=== PATIENT | female | born 2000 | race Caucasian/White ===

== ENCOUNTER 2025-02-13 16:47 | Inpatient (IN) | payer MEDICAID, OTHER ==
[~2025-02-13] VITALS: Ht 157.5 cm; Wt 89.5 kg
--- NOTE | 2025-02-13 17:12 | ED.PDOC ---
GI ASSESSMENT HPI Comments 24 y.o female presents to the ED via EMS for a chief complaint of abdominal pain associated with nausea and vomiting that started 11 days ago but worsened today after eating a fatty meal at 11am. Patient reports being diagnosed with gallstones when pain first presented, states her first solid meal was today since which exacerbated her pain. Patient also mentions being 3 weeks . Patient denies any vaginal bleeding, bloody stool dysuria, he maturia, diarrhea, fever, or chills. Patient reports pain is constant and sharp. EMS presents on scene, patient was hypotensive in the 80's systolic, was given 200 cc IV fluids brining pressure back up to 93/63. HPI OREN RITCHIE 24 F. EPIG PAIN N/V/ SIMILAR TO GALLSTONES IN PAST. AFTER EATING FATTY MEAL TODAY. SHE'S BEEN ON CLEAR DIET FOR FEW DAYS. HYPOTENSION. Patient denies any allergies Vitals Temperature: 98.1 F Heart Rate: 88 Blood pressure: 93/63 SPO2: 98% RA RR: 20 Past Medical History: Gallstones Past Surgical History: Denies HPI: Poor Historian. REVIEW OF SYSTEMS: CONSTITUTIONAL: Denies acute: fever, diaphoresis, chills, HEAD: Denies acute: headache, photophobia Eyes: Denies acute: Double vision, vision loss, eye pain, eye discharge. EARS: Denies acute: tinnitus, hearing loss, ear discharge, ear pain, THROAT: Denies acute: sore throat, swelling, difficulty swallowing , pain with swallowing, change in voice. NECK: Denies acute: neck pain, neck swelling, stiff neck. HEART: Denies acute : chest pain, palpitations, LUNGS: Denies acute: SOB, wheezing, cough, hemoptysis ABDOMEN: Denies acute: diarrhea, melena , hematemesis, hematochezia SKIN: Denies acute: rash, redness, lesions, itchiness. EXTREMITIES: Denies acute: calf pain, numbness, tingling, weakness, denies pain in extremity. Denies acute: Low back pain. Neuro: Denies acute: focal neurological deficit, motor or sensory focal neurological deficit, tremors, seizure like activity, confusion, dizziness, change in mental status, loss of bowel or bladder function, cauda equina like symptoms. : Denies acute: dysuria, hematuria, flank pain, increase in urinary frequency. PSYCH: Denies acute: hallucination, suicidal ideation, homicidal ideation. FEMALE: Denies acute: abnormal vaginal bleeding, foul odor, unusual discharge. PHYSICAL EXAM: General: ----[id number]----acute distress, awake and alert. Head: normocephalic, atraumatic. Neck: supple, trachea is midline, no swelling. Throat: Normal phonation. Eyes:, no erythema, no purulent discharge, no proptosis, no icterus. Heart: regular rate, regular rhythm, no significant murmur appreciated. Lungs: no apparent respiratory distress, Able to speak in full sentences. No wheezing, no rhonchi, no crackles. No stridors Clear to auscultation bilaterally. Abdomen: Mid abdomen/epigastric tender to palpation, non distended, soft, no guarding, no rebound, + bowel sounds. Obese Neuro: Awake, Alert, oriented to name, self, situation, follows commands GCS=15. Speech is normal. Skin: no petechia, no purpura, no cyanosis, non-pale, not jaundice. Lower extremities: --no - Pitting edema no deformity, no focal swelling, no calf TTP. Makes eye contact. moves all four extremities. Face: no apparent facial droop. Evaluation of the surgical site. Incision looks clean dry intact. No findings to suggest infection. No erythema, no swelling, no drainage, no dehiscence. No tenderness to palpation. ED COURSE: Chief Complaint: Low Blood Pressure Time Seen by MD: 16:52 Primary Care Provider: UNKNOWN Reviewed Notes: Medications, Allergies Allergies: Coded Allergies: NO KNOWN ALLERGIES (Unverified , 08/03/11) Information Source: Patient Mode of Arrival: EMS Past Medical History PAST MEDICAL HISTORY: Gallstones Surgical History: Denies all surgeries AUTOMATIC [employer]ILOT [employer]CH[employer]IC History: No Pertinent AUTOMAT[employer] PILOT MECH[employer]IC History Family History Family History: Reviewed,noncontributory to illness Social History Smoker: Non-Smoker Alcohol: Denies ETOH Use Drugs: Denies Drug Use Lives In: Home Was a procedure done? Was a procedure done?: No GI differential Dx Differential Diagnosis: Cholangitis, Cholecystitis, Gastroenteritis, Inflammatory BD, Electrolyte Imbalance, Food Poisoning, Viral, Other (DDX include Diverticulitis, colitis, gastroenteritis, acute abdomen, SBO, enteritis, constipation, volvulus, appendicitis, Gallbladder disease, choledocolithiasis, ascending cholangitis, pancreatitis, intraAbdominal mass/neoplasm, hepatitis, UTI, pylonephritis, kidney stone, aneurysm, dissection, Inflammatory bowel disease, gastroparesis, ischemic bowel, ovarian torsion, ovarian cyst/mass, tubo-ovarian abscess, , ectopic , PID, STD.) X-Ray, Labs, Meds, VS Vital Signs Date Time Temp Pulse Resp B/P (MAP) Pulse Ox O2 Delivery O2 Flow Rate FiO2 02/13/25 20:35 107/55 02/13/25 20:00 98.4 86 16 107/55 (72) 97 98.4 02/13/25 20:00 86 16 97 Room Air* 0 21 02/13/25 20:00 88 02/13/25 17:20 Room Air* 0 21 02/13/25 17:20 98.3 82 17 107/63 (78) 99 98.3 02/13/25 16:56 98.1 88 20 93/63 (73) 98 98.1 Lab Test 02/13/25 20:13 02/13/25 17:35 02/13/25 17:05 Range/Units Urine Opiates Screen Neg NEGATIVE Urine Fentanyl Screen Neg NEGATIVE Urine Barbiturates Screen Neg NEGATIVE Urine Phencyclidine Screen Neg NEGATIVE Urine Amphetamines Screen Neg NEGATIVE Urine Benzodiazepines Screen Neg NEGATIVE Urine Cocaine Screen Neg NEGATIVE Urine Cannabinoids Screen Neg NEGATIVE Urine Color Light-yellow Yellow Urine Clarity Turbid H Clear Urine pH 8.0 5.0-9.0 Urine Specific [place] 1.007 1.001-1.035 Urine Protein Negative Negative Urine Ketones Negative Negative Urine Blood 2+ H Negative /uL Urine Nitrite Negative Negative Urine Bilirubin Negative Negative Urine Urobilinogen Normal Negative mg/dL Urine Leukocyte Esterase 3+ Negative /uL Urine RBC 3 0 - 4 /hpf Urine Microscopic WBC 65 H 0-5 /HPF Urine Squamous Epithelial Cells Few <5 /hpf Urine Bacteria Few H None Seen /hpf Urine Glucose Normal Normal mg/dL White Blood Count 4.2 L 4.4-10.8 10^3/uL Red Blood Count 4.17 4.0-5.20 10^6/uL Hemoglobin 11.9 L 12.2-16.2 g/dL Hematocrit 35.5 L 36.0-46.0 % Mean Corpuscular Volume 85.0 80.0-100.0 fL Mean Corpuscular Hemoglobin 28.4 28.0-32.0 pg Mean Corpuscular Hemoglobin Concent 33.5 32.0-36.0 g/dL Red Cell Distribution Width 15.2 H 11.8-14.3 % Platelet Count 328 140-450 10^3/uL Mean Platelet Volume 7.3 6.9-10.8 fL Neutrophils (%) (Auto) 56.1 37.0-80.0 % Lymphocytes (%) (Auto) 25.9 10.0-50.0 % Monocytes (%) (Auto) 13.5 H 0.0-12.0 % Eosinophils (%) (Auto) 3.6 0.0-7.0 % Basophils (%) (Auto) 0.9 0.0-2.0 % Neutrophils # (Auto) 2.3 1.6-8.6 10 ^3/uL Lymphocytes # (Auto) 1.1 0.4-5.4 10 ^3/uL Monocytes # (Auto) 0.6 0-1.3 10 ^3/uL Eosinophils # (Auto) 0.2 0-0.8 10 ^3/uL Basophils # (Auto) 0 0-0.2 10 ^3/uL Nucleated Red Blood Cells 0.2 % Erythrocyte Sedimentation Rate 82 H 0-20 mm/hr Sodium Level 144 136-145 mmol/L Potassium Level 3.9 3.5-5.1 mmol/L Chloride Level 111 H 98-107 mmol/L Carbon Dioxide Level 24 20-31 mmol/L Anion Gap 9 5-15 Blood Urea Nitrogen 8 L 9-23 mg/dL Creatinine 0.63 0.550-1.02 mg/dL Glomerular Filtration Rate Calc 128 >90 mL/min BUN/Creatinine Ratio 12.7 10.0-20.0 Serum Glucose 79 74-106 mg/dL Lactic Acid Level 1.0 0.4-2.0 mmol/L Calcium Level 8.9 8.7-10.4 mg/dL Total Bilirubin 0.6 0.2-1.0 mg/dL Aspartate Amino Transferase (AST) 536 H 13-40 U/L Alanine Aminotransferase (ALT) 306 H 7-40 U/L Alkaline Phosphatase 321 H 46-116 U/L C-Reactive Protein High Sensitivity 0.77 <1.0 mg/dL B-Type Natriuretic Peptide 5.48 0-100 pg/mL Total Protein 6.1 5.7-8.2 g/dL Albumin 3.5 3.2-4.8 g/dL Lipase 55 H 12-53 U/L Current Medications Medications (Trade) Dose Ordered Sig/Milagros Route Start Time Stop Time Status Last Admin Sodium Chloride 1,000 ml @ 1,000 mls/hr Q1H ONCE IV 02/13/25 17:15 02/13/25 18:14 DC 02/13/25 17:58 Ondansetron HCl (Zofran) 8 mg ONCE ONCE IV 02/13/25 17:15 02/13/25 17:17 DC 02/13/25 17:58 Ceftriaxone Sodium 50 ml @ 100 mls/hr ONCE ONCE IV 02/13/25 19:00 02/13/25 19:29 DC 02/13/25 19:11 Fentanyl Citrate 100 mcg ONCE ONCE IV 02/13/25 20:15 02/13/25 20:16 DC 02/13/25 20:35 Sodium Chloride (Saline Lock Ns) 10 ml Q8HR IV 02/13/25 22:00 02/13/25 22:29 [place] [id number] Ph: [phone] DIAGNOSTIC IMAGING Diagnostic Imaging Report : [id number] Signed PATIENT: CHAD RITCHIECCT: [id number] UNIT: [id number] : 2000 LOC: ER ROOM / BED: / AGE / SEX: 24 / F ADM STATUS: REG ER SERVICE [id number] ORDERING PHYSICIAN: GLENDY LEDEZMA DO PROCEDURE(s): ABDL - ABDOMEN LIMITED REASON: epig pain n/v ORDER NUMBER(s): [id number], ACCESSION NUMBER(s): [id number] INDICATION: epig pain n/v TECHNIQUE: Multiple real-time sonographic images were obtained of the right upper quadrant. COMPARISON: None FINDINGS: The liver demonstrates increased echotexture without focal mass lesi ons. The liver measures 17.4 cm. There is no intrahepatic or extrahepatic ductal dilatation. The common duct measures 0.4 cm. The gallbladder is without evidence of stone or sludge. The gallbladder wall measures 0.2 cm and is within normal limits. The right kidney measures 10.6 cm. The right kidney is normal in contour, size, and shape. The echogenicity is normal. There is no hydronephrosis. The pancreas is not well visualized due to overlying bowel gas. IMPRESSION: Hepatic steatosis and hepatomegaly. ATED BY: ERIC RICK MD DICTATED DATE/TIME: 02/13/251747 SIGNED BY: ERIC RICK MD SIGNED DATE/TIME: 02/13/251747 CC: [place] [id number] Ph: [phone] DIAGNOSTIC IMAGING Diagnostic Imaging Report : [id number] Signed PATIENT: CHAD RITCHIECCT: [id number] UNIT: [id number] : 2000 LOC: ER ROOM / BED: / AGE / SEX: 24 / F ADM STATUS: REG ER SERVICE [id number] ORDERING PHYSICIAN: GLEDNY LEDEZMA DO PROCEDURE(s): ABPL - CT AB PEL WO CON-NO ORAL OR IV REASON: abd pain , n/v ORDER NUMBER(s): [id number], ACCESSION NUMBER(s): [id number] Exam: CT CT AB PEL WO CON-NO ORAL OR IV History: abd pain , n/v Comparison Study: None TECHNIQUE: Multidetector CT of the abdomen and pelvis was performed from lung bases to pubic symphysis. Imaging was performed without IV contrast. Axial, c oronal, and sagittal multiplanar reformats were obtained from the axial data set by the technologist. RADIATION DOSE: DLP 22.68 mGy.cm; CTDI vol 1157.92 mGy. Findings: Lungs: The lung bases are clear. Heart: No cardiomegaly or pericardial effusion. Liver: Unremarkable. Gallbladder: Unremarkable. Spleen: Unremarkable Pancreas: Unremarkable Adrenals: Unremarkable Kidneys: Unremarkable GI tract: Unremarkable. Normal appendix. : Unremarkable. Vasculature: Unremarkable Lymphadenopathy: Mildly prominent mesenteric lymph nodes in the right lower quadrant. Peritoneum: No ascites Musculoskeletal: Unremarkable Soft tissues: Unremarkable Impression: 1. No acute abdominopelvic abnormalities. 2. Mildly prominent right lower quadrant mesenteric nodes. Correlate for mesenteric adenitis. ATED BY: MARY CARMEN ARELLANO DO DICTATED DATE/TIME: 02/13/252039 SIGNED BY: MARY CARMEN ARELLANO DO SIGNED DATE/TIME: 02/13/252039 CC: Time of 1ST Reevaluation: 18:00 Reevaluation 1ST: Unchanged Time of 2ND Reevaluation: 00:40 Reevaluation 2ND: Improved Patient Education/Counseling: Diagnosis, Treatment Family Education/Counseling: No Family Present Comments Patient presented with the above HPI.-abdominal pain----workup was initiated. patient was found with the above mentioned diagnosis. the following medications were ordered: please refer to order lists of meds and tests obtained by myself Dr. Ledezma. Patient ED course and VS have been stabilized. Patient has been reassessed in the ED and remained in a stable condition. Pertinent incidental findings were discussed with the patient and/or family. Patient/family voices understanding and is agreeable with plan. Patient has been observed in the ED adequate length of time to insure improvement/stability. Escalation of care considered: Consideration of escalation to observation or admission Patient was ADMITTED to the medicine team for further evaluation and treatment of their presentation. All the reports of any imaging studies that were ordered by myself were reviewed by myself. Departure 1 Departure Time of Disposition: 18:49 Impression: Primary Impression: Elevated LFTs Additional Impressions: Abdominal pain Mesenteric adenitis UTI (urinary tract infection) Disposition: ADMITTED INPATIENT Admit to: [facility] Condition: Guarded Discharged With: Self Critical Care Note Critical Care Time?: No I personally scribed for GLENDY LEDEZMA DO ([email or web address]) on 02/13/25 at 17:12. Electronically submitted by Lauren Brumfield ([facility]). I personally scribed for GLENDY LEDEZMA DO ([email or web address]) on 02/13/25 at 18:17. Electronically submitted by Lauren Brumfield ([email or web address]). I personally scribed for GLENDY LEDEZMA DO ([email or web address]) on 02/13/25 at 21:25. Electronically submitted by Saturnino Galo ([email or web address]). GLENDY LEDEZMA DO Feb 13, 2025 17:12
[2025-02-13 17:19] LABS: Basophils # (auto) 0 10 ^3/uL (0-0.2); Basophils % (auto) 0.9 % (0.0-2.0); Eosinophils # (auto) 0.2 10 ^3/uL (0-0.8); Eosinophils % (auto) 3.6 % (0.0-7.0); Hematocrit 35.5 % (36.0-46.0); Hemoglobin 11.9 g/dL (12.2-16.2); Lymphocytes # (auto) 1.1 10 ^3/uL (0.4-5.4); Lymphocytes % (auto) 25.9 % (10.0-50.0); Mean Corpuscular Hemoglobin 28.4 pg (28.0-32.0); Mean Corpuscular Hgb Conc. 33.5 g/dL (32.0-36.0); Monocytes # (auto) 0.6 10 ^3/uL (0-1.3); Monocytes % (auto) 13.5 % (0.0-12.0); Neutrophils # (auto) 2.3 10 ^3/uL (1.6-8.6); Neutrophils % (auto) 56.1 % (37.0-80.0); Nucleated Red Blood Cells % 0.2 %; Platelet Count (auto) 328 10^3/uL (140-450); Red Blood Cells 4.17 10^6/uL (4.0-5.20); Red Cell Distribution Width 15.2 % (11.8-14.3); White Blood Cell 4.2 10^3/uL (4.4-10.8)
[2025-02-13 17:31] LABS: Albumin 3.5 g/dL (3.2-4.8); Anion Gap 9 (5-15); BUN/Creatinine Ratio 12.7 (10.0-20.0); Bilirubin, Total 0.6 mg/dL (0.2-1.0); CRP High Sensitivity 0.77 mg/dL (<1.0); Calcium 8.9 mg/dL (8.7-10.4); Carbon Dioxide 24 mmol/L (20-31); Glucose 79 mg/dL (74-106); Potassium 3.9 mmol/L (3.5-5.1); Sodium 144 mmol/L (136-145); Total Protein 6.1 g/dL (5.7-8.2)
[2025-02-13 17:34] LABS: Alanine Aminotransferase 306 U/L (7-40); Alkaline Phosphatase 321 U/L (46-116); Aspartate Aminotransferase 536 U/L (13-40); Blood Urea Nitrogen 8 mg/dL (9-23); Chloride 111 mmol/L (98-107)
--- NOTE | 2025-02-13 17:52 | DVH ---
INDICATION: epig pain n/v TECHNIQUE: Multiple real-time sonographic images were obtained of the right upper quadrant. COMPARISON: None FINDINGS: The liver demonstrates increased echotexture without focal mass lesions. The liver measure s 17.4 cm. There is no intrahepatic or extrahepatic ductal dilatation. The common duct measures 0.4 cm. The gallbladder is without evidence of stone or sludge. The gallbladder wall measures 0.2 cm and is w ithin normal limits. The right kidney measures 10.6 cm. The right kidney is normal in contour, size, and shape. The echoge nicity is normal. There is no hydronephrosis. The pancreas is not well visualized due to overlying bowel gas. IMPRESSION: Hepatic steatosis and hepatomegaly.
[2025-02-13 17:54] LABS: Erythrocyte Sedimentation Rate 82 mm/hr (0-20)
[2025-02-13] MEDS: SODIUM CHLORIDE 0.9% 1,000 ML IV ONE (17:58)
[2025-02-13] MEDS: ONDANSETRON HCL 4 MG/2 ML VIAL IV ONE (17:58)
[2025-02-13 18:21] LABS: Urine Bacteria FEW /hpf (None Seen); Urine Blood 2+ /uL (Negative); Urine Clarity Turbid (Clear); Urine Color Light-Yellow (Yellow); Urine Protein, UAD Negative (Negative); Urine Specific Gravity 1.007 (1.001-1.035); Urine Squamous Epithelial Cell FEW /hpf (<5); Urine Urobilinogen Normal (Negative); Urine WBC 65 /HPF (0-5)
[2025-02-13] MEDS: cefTRIAXone 1GM/50ML D5W 50 ML IV ONE (19:11)
[2025-02-13 20:00] VITALS: PULSE 86; RESP 16; O2SAT 97
[2025-02-13] MEDS: fentaNYL CITRATE 100 MCG/2 ML VL IV ONE (20:35)
--- NOTE | 2025-02-13 20:43 | DVH ---
Exam: CT CT AB PEL WO CON-NO ORAL OR IV History: abd pain , n/v Comparison Study: None TECHNIQUE: Multidetector CT of the abdomen and pelvis was performed from lung bases to pubic symphysi s. Imaging was performed without IV contrast. Axial, coronal, and sagittal multiplanar reformats were obtained from the axial data set by the technologist. RADIATION DOSE: DLP 22.68 mGy.cm; CTDI vol 1157.92 mGy. Findings: Lungs: The lung bases are clear. Heart: No cardiomegaly or pericardial effusion. Liver: Unremarkable. Gallbladder: Unremarkable. Spleen: Unremarkable Pancreas: Unremarkable Adrenals: Unremarkable Kidneys: Unremarkable GI tract: Unremarkable. Normal appendix. : Unremarkable. Vasculature: Unremarkable Lymphadenopathy: Mildly prominent mesenteric lymph nodes in the right lower quadrant. Peritoneum: No ascites Musculoskeletal: Unremarkable Soft tissues: Unremarkable Impression: 1. No acute abdominopelvic abnormalities. 2. Mildly prominent right lower quadrant mesenteric nodes. Correlate for mesenteric adenitis.
[2025-02-13] MEDS ORDERED: HYDROcodone-ACET 5/325MG TAB PO PRN (21:15)
[2025-02-13] MEDS ORDERED: ONDANSETRON HCL 4 MG/2 ML VIAL IV PRN (21:15)
[2025-02-13] MEDS ORDERED: DOCUSATE SOD 100 MG CAP PO PRN (21:15)
[2025-02-13 21:56] LABS: Amphetamine Screen, Urine Neg (NEGATIVE); Barbiturate Scree,Urine Neg (NEGATIVE); Benzodiazephine Screen, Urine Neg (NEGATIVE); Cannabinoid Screen, Urine Neg (NEGATIVE); Cocaine Screen, Urine Neg (NEGATIVE); Opiate Scree,Urine Neg (NEGATIVE); Phencyclidine Screen, Urine Neg (NEGATIVE)
[2025-02-13] MEDS: SODIUM CHLOR 0.9% PF (SALINE LOCK) 10ML VIAL/SYR IV SCH (22:29)
[2025-02-13] MEDS ORDERED: MORPHINE SULFATE INJ 2 MG/ml SYRG IV PRN (23:00)
[2025-02-13] MEDS ORDERED: NITROGLYCERIN 0.4 MG SL TAB SL PRN (23:00)
--- NOTE | 2025-02-13 23:00 | DVHHP2 ---
History of Present Illness Reason for Visit: Acute abdominal pain History of Present Illness The patient is a a 24-year-old female with past medical history of gallstones who presented to [facility] ED with complaint of acute abdominal pain. Patient reports she has been experiencing diffuse abdominal pain with associated nausea and vomiting for the past 11 days. Patient was seen and evaluated in the ED, laboratory data shows WBC 4.2, hemoglobin 11.9, hematocrit 35.5, platelets 325, sodium 144, potassium 3.9, BUN 8, creatinine 0.63, glucose 79, lipase 55, AST 536, ALT 306, alkaline phos 321, BNP 5.48, blood pressure 107/59, heart rate 82, temperature 98.3 F, O2 saturation 99% room air. Single organ ultrasound revealing hepatic steatosis hepatomegaly. Abdomen/pelvis CT revealing mildly prominent right lower quadrant mesenteric nodes correlate for mesenteric adenitis. Urinalysis positive for urinary tract infection. Patient was started on IV antibiotic regimen Rocephin, please see medication orders section in the computer. On my assessment, patient denied chest pain, no headache, no dizziness, no shortness of breaths, no nausea or vomiting at this moment, no fever, no chills. Patient was admitted for further evaluation and medical management. Past Medical History Gallstones Past Surgical History Denies all surgeries Family History Reviewed, noncontributory to the management of this case. Past Social History The patient lives at home, denies smoking, alcohol or illicit drugs abuse. Review of Systems Constitutional: No: Fever, Chills, Sweats, Weakness, Malaise, Other Eyes: No: Pain, Vision change, Conjunctivae inflammation, Eyelid inflammation, Other, Redness ENT: No: Ear pain, Ear discharge, Nose pain, Nose discharge, Nose congestion, Mouth pain, Mouth swelling, Throat pain, Throat swelling, Other Respiratory: No: Cough, Dry, Shortness of breath, SOB with excertion, Wheezing, Hemoptysis, Pleuritic Pain, Sputum, Wheezing, Other Cardiovascular: No: Chest Pain, Palpitations, Orthopnea, Paroxysmal Noc. Dyspnea, Edema, Lt Headedness, Other Gastrointestinal: Nausea, Vomiting, Abdominal Pain; No: Diarrhea, Constipation, Melena, Hematochezia, Other Genitourinary: No Dysuria, No Frequency, No Incontinence, No Hematuria, No Retention, No Other Musculoskeletal: No: other, neck pain, shoulder pain, arm pain, back pain, hand pain, leg pain, foot pain Skin: No: Rash, Lesions, Jaundice, Bruising, Other Neurological: No: Weakness, Numbness, Incoordination, Change in speech, Confusion, Seizures, Other Allergies: Coded Allergies: NO KNOWN ALLERGIES (Unverified , 08/03/11) Medications Current Medications Medications Dose Ordered Sig/Milagros Route Start Time Stop Time Status Last Admin Dose Admin Ceftriaxone Sodium 50 ml @ 100 mls/hr DAILY@09 IV 02/14/25 09:00 Ibuprofen 600 mg Q6HP PRN PO 02/13/25 21:15 Sodium Chloride 10 ml Q8HR IV 02/13/25 22:00 02/13/25 22:29 10 ML Acetaminophen/ Hydrocodone Bitart 1 tab Q4HP PRN PO 02/13/25 21:15 Ondansetron HCl 4 mg Q4HP PRN IV 02/13/25 21:15 Docusate Sodium 100 mg BIDPRN PRN PO 02/13/25 21:15 Exam Vital Signs Vital Signs Date Time Temp Pulse Resp B/P (MAP) Pulse Ox O2 Delivery O2 Flow Rate FiO2 02/13/25 20:35 107/55 02/13/25 20:00 98.4 86 16 97 98.4 02/13/25 20:00 Room Air* 0 21 General Appearance: Alert, Oriented X3, Cooperative, No acute distress HEENT: Atraumatic, PERRLA, EOMI, Mucous membr. moist/pink Respiratory: Clear to auscultation, Normal air movement Cardiovascular: Regular rate, Normal S1, Normal S2, No murmurs Abdominal: Normal bowel sounds, Soft, No hepatospenomegaly, No masses, Other (Reports tenderness) Extremities: No clubbing, No cyanosis, No edema, Normal pulses, No tenderness/swelling Skin: No rashes, No breakdown, No significant lesion Neuro: Normal gait, Normal speech, Strength at 5/5 X4 ext, Normal tone, Sensation intact, Cranial nerves 3-12 NL, Reflexes 2+ Psych/Mental Status: Mental status NL, Mood NL Labs/Xrays Labs Test 02/13/25 20:13 02/13/25 17:35 02/13/25 17:05 Range/Units Urine Opiates Screen Neg NEGATIVE Urine Fentanyl Screen Neg NEGATIVE Urine Barbiturates Screen Neg NEGATIVE Urine Phencyclidine Screen Neg NEGATIVE Urine Amphetamines Screen Neg NEGATIVE Urine Benzodiazepines Screen Neg NEGATIVE Urine Cocaine Screen Neg NEGATIVE Urine Cannabinoids Screen Neg NEGATIVE Urine Color Light-yellow Yellow Urine Clarity Turbid H Clear Urine pH 8.0 5.0-9.0 Urine Specific [place] 1.007 1.001-1.035 Urine Protein Negative Negative Urine Ketones Negative Negative Urine Blood 2+ H Negative /uL Urine Nitrite Negative Negative Urine Bilirubin Negative Negative Urine Urobilinogen Normal Negative mg/dL Urine Leukocyte Esterase 3+ Negative /uL Urine RBC 3 0 - 4 /hpf Urine Microscopic WBC 65 H 0-5 /HPF Urine Squamous Epithelial Cells Few <5 /hpf Urine Bacteria Few H None Seen /hpf Urine Glucose Normal Normal mg/dL White Blood Count 4.2 L 4.4-10.8 10^3/uL Red Blood Count 4.17 4.0-5.20 10^6/uL Hemoglobin 11.9 L 12.2-16.2 g/dL Hematocrit 35.5 L 36.0-46.0 % Mean Corpuscular Volume 85.0 80.0-100.0 fL Mean Corpuscular Hemoglobin 28.4 28.0-32.0 pg Mean Corpuscular Hemoglobin Concent 33.5 32.0-36.0 g/dL Red Cell Distribution Width 15.2 H 11.8-14.3 % Platelet Count 328 140-450 10^3/uL Mean Platelet Volume 7.3 6.9-10.8 fL Neutrophils (%) (Auto) 56.1 37.0-80.0 % Lymphocytes (%) (Auto) 25.9 10.0-50.0 % Monocytes (%) (Auto) 13.5 H 0.0-12.0 % Eosinophils (%) (Auto) 3.6 0.0-7.0 % Basophils (%) (Auto) 0.9 0.0-2.0 % Neutrophils # (Auto) 2.3 1.6-8.6 10 ^3/uL Lymphocytes # (Auto) 1.1 0.4-5.4 10 ^3/uL Monocytes # (Auto) 0.6 0-1.3 10 ^3/uL Eosinophils # (Auto) 0.2 0-0.8 10 ^3/uL Basophils # (Auto) 0 0-0.2 10 ^3/uL Nucleated Red Blood Cells 0.2 % Erythrocyte Sedimentation Rate 82 H 0-20 mm/hr Sodium Level 144 136-145 mmol/L Potassium Level 3.9 3.5-5.1 mmol/L Chloride Level 111 H 98-107 mmol/L Carbon Dioxide Level 24 20-31 mmol/L Anion Gap 9 5-15 Blood Urea Nitrogen 8 L 9-23 mg/dL Creatinine 0.63 0.550-1.02 mg/dL Glomerular Filtration Rate Calc 128 >90 mL/min BUN/Creatinine Ratio 12.7 10.0-20.0 Serum Glucose 79 74-106 mg/dL Lactic Acid Level 1.0 0.4-2.0 mmol/L Calcium Level 8.9 8.7-10.4 mg/dL Total Bilirubin 0.6 0.2-1.0 mg/dL Aspartate Amino Transferase (AST) 536 H 13-40 U/L Alanine Aminotransferase (ALT) 306 H 7-40 U/L Alkaline Phosphatase 321 H 46-116 U/L C-Reactive Protein High Sensitivity 0.77 <1.0 mg/dL B-Type Natriuretic Peptide 5.48 0-100 pg/mL Total Protein 6.1 5.7-8.2 g/dL Albumin 3.5 3.2-4.8 g/dL Lipase 55 H 12-53 U/L PATIENT: MARILEE RITCHIET: [id number] UNIT: [id number] : 2000 LOC: ER ROOM / BED: / AGE / SEX: 24 / F ADM STATUS: REG ER SERVICE 1850 ORDERING PHYSICIAN: GLENDY LEDEZMA DO PROCEDURE(s): ABPL - CT AB PEL WO CON-NO ORAL OR IV REASON: abd pain , n/v ORDER NUMBER(s): [id number], ACCESSION NUMBER(s): [id number] Exam: CT CT AB PEL WO CON-NO ORAL OR IV History: abd pain , n/v Comparison Study: None TECHNIQUE: Multidetector CT of the abdomen and pelvis was performed from lung bases to pubic symphysis. Imaging was performed without IV contrast. Axial, coronal, and sagittal multiplanar reformats were obtained from the axial data set by the technologist. RADIATION DOSE: DLP 22.68 mGy.cm; CTDI vol 1157.92 mGy. Findings: Lungs: The lung bases are clear. Heart: No cardiomegaly or pericardial effusion. Liver: Unremarkable. Gallbladder: Unremarkable. Spleen: Unremarkable Pancreas: Unremarkable Adrenals: Unremarkable Kidneys: Unremarkable GI tract: Unremarkable. Normal appendix. : Unremarkable. Vasculature: Unremarkable Lymphadenopathy: Mildly prominent mesenteric lymph nodes in the right lower quadrant. Peritoneum: No ascites Musculoskeletal: Unremarkable Soft tissues: Unremarkable Impression: 1. No acute abdominopelvic abnormalities. 2. Mildly prominent right lower quadrant mesenteric nodes. Correlate for mesenteric adenitis. ORDERING PHYSICIAN: GLENDY LEDEZMA DO PROCEDURE(s): ABDL - ABDOMEN LIMITED REASON: epig pain n/v ORDER NUMBER(s): [id number], ACCESSION NUMBER(s): [id number] INDICATION: epig pain n/v TECHNIQUE: Multiple real-time sonographic images were obtained of the right upper quadrant. COMPARISON: None FINDINGS: The liver demonstrates increased echotexture without focal mass lesions. The liver measures 17.4 cm. There is no intrahepatic or extrahepatic ductal dilatation. The common duct measures 0.4 cm. The gallbladder is without evidence of stone or sludge. The gallbladder wall measures 0.2 cm and is within normal limits. The right kidney measures 10.6 cm. The right kidney is normal in contour, size, and shape. The echogenicity is normal. There is no hydronephrosis. The pancreas is not well visualized due to overlying bowel gas. IMPRESSION: Hepatic steatosis and hepatomegaly. Assessment/Plan Assessment/Plan Elevated liver enzymes Mesenteric adenitis Acute abdominal pain UTI (urinary tract infection) Plan 1. Admit to telemetry unit 2. Breathing treatment 3. Pain control management 4. IV antibiotic management 5. Management of fluids and electrolytes 6. Consultation for GI/hospitalist 7. Diagnostic test abdomen/pelvis CT 8. DVT prophylaxis-on SCDs 9. Repeat labs CBC, CMP in a.m. 10. Home medication reviewed and reconciled 11. Continue with current medical management 12. Treatment plan discussed with patient and RN. Patient verbalized understanding. Plan discussed with: Patient, Other (RN) My Orders Orders - TONIE GALAN DNP Procedure Category Date Status Time Urine Bacterial NANI 02/13/25 Logged Culture 21:12 Ceftriaxone 1gm/50ml PHA 02/14/25 In Process D5w (Rocephin) 09:00 * Gi D[facility] [employer] CONS 02/13/25 Transmitted 21:12 Ibuprofen Tablet PHA 02/13/25 In Process (Motrin Tablet) 21:15 Allergies ZHANG 02/13/25 In Process 21:12 Code Status CODE 02/13/25 Transmitted 21:12 Sodium Chloride Lock PHA 02/13/25 In Process (Saline Lock Ns) 22:00 Oxygen Per Hour RT 02/13/25 Transmitted 21:12 Hydrocodone-Acet PHA 02/13/25 In Process 5/325mg Tab (Yulan 21:15 Ondansetron Hcl PHA 02/13/25 In Process (Zofran) 21:15 Docusate Sodium PHA 02/13/25 In Process Capsule (Colace 21:15 Complete Blood Count LAB 02/14/25 Verified 04:00 Comprehensive LAB 02/14/25 Verified Metabolic Panel 04:00 Cardiac DIET 02/14/25 Transmitted Diet-2gna,Lofat,Lochol Breakfast Condition: Serious ZHANG 02/13/25 In Process 21:12 Bedrest With Bathroom ZHANG 02/13/25 In Process Privileg 21:12 Sequential ZHANG 02/13/25 In Process Compression Device Problem List: (1) Elevated liver enzymes (2) Acute abdominal pain (3) UTI (urinary tract infection) (4) Mesenteric adenitis Date of Service: Feb 13, 2025 Billing Provider: TONIE GALAN DNP Common Visit Codes: [id number] INP/OBS CARE (HIGH) TONIE GALAN DNP Feb 13, 2025 23:00
[2025-02-14 05:00] VITALS: BP 95/50; PULSE 81; RESP 14; O2SAT 94
[2025-02-14 06:27] LABS: Basophils # (auto) 0 10 ^3/uL (0-0.2); Basophils % (auto) 0.8 % (0.0-2.0); Eosinophils # (auto) 0.2 10 ^3/uL (0-0.8); Eosinophils % (auto) 4.4 % (0.0-7.0); Hematocrit 37.4 % (36.0-46.0); Hemoglobin 12.6 g/dL (12.2-16.2); Lymphocytes # (auto) 0.9 10 ^3/uL (0.4-5.4); Lymphocytes % (auto) 19.9 % (10.0-50.0); Mean Corpuscular Hemoglobin 28.6 pg (28.0-32.0); Mean Corpuscular Hgb Conc. 33.6 g/dL (32.0-36.0); Monocytes # (auto) 0.4 10 ^3/uL (0-1.3); Monocytes % (auto) 8.9 % (0.0-12.0); Platelet Count (auto) 333 10^3/uL (140-450); Red Cell Distribution Width 15.7 % (11.8-14.3); White Blood Cell 4.6 10^3/uL (4.4-10.8)
[2025-02-14 06:56] LABS: Albumin 3.7 g/dL (3.2-4.8); Anion Gap 8 (5-15); BUN/Creatinine Ratio 7.9 (10.0-20.0); Carbon Dioxide 25 mmol/L (20-31); Glucose 87 mg/dL (74-106); Potassium 4.1 mmol/L (3.5-5.1); Sodium 144 mmol/L (136-145); Total Protein 6.8 g/dL (5.7-8.2)
[2025-02-14 07:06] LABS: Alanine Aminotransferase 516 U/L (7-40); Alkaline Phosphatase 376 U/L (46-116); Aspartate Aminotransferase 536 U/L (13-40); Bilirubin, Total 0.2 mg/dL (0.2-1.0); Blood Urea Nitrogen 5 mg/dL (9-23); Calcium 8.4 mg/dL (8.7-10.4); Chloride 111 mmol/L (98-107)
[2025-02-14 09:01] VITALS: PULSE 98; RESP 16; O2SAT 96
[2025-02-14] MEDS: cefTRIAXone 1GM/50ML D5W 50 ML IV SCH (09:16)
[2025-02-14 12:30] VITALS: BP 117/76; PULSE 106; RESP 14; TEMP 99.2; O2SAT 95
[2025-02-14] MEDS: IBUPROFEN 600 MG TAB PO PRN (12:38)
--- NOTE | 2025-02-14 17:53 | DVHPN2 ---
Subjective In bed resting, sad she needs to stay in the hospital Reviewed: H&P, Labs Changes from previous H/P or p: No Changes Eyes: No Pain, No Vision change, No Conjunctivae inflammation, No Eyelid inflammation, No Other, No Redness ENT: No Ear pain, No Ear discharge, No Nose pain, No Nose discharge, No Nose congestion, No Mouth pain, No Mouth swelling, No Throat pain, No Throat swelling, No Other Cardiovascular: No Chest Pain, No Palpitations, No Orthopnea, No Paroxysmal Noc. Dyspnea, No Edema, No Lt Headedness, No Other Respiratory: No Cough, No Dry, No Shortness of breath, No SOB with excertion, No Wheezing, No Hemoptysis, No Pleuritic Pain, No Sputum, No Other Gastrointestinal: Nausea, Vomiting, Abdominal Pain; No Diarrhea, No Constipation, No Melena, No Hematochezia, No Other Genitourinary: No Dysuria, No Frequency, No Incontinence, No Hematuria, No Retention, No Other Musculoskeletal: No other, No neck pain, No shoulder pain, No arm pain, No back pain, No hand pain, No leg pain, No foot pain Skin: No Rash, No Lesions, No Jaundice, No Bruising, No Other Objective Vitals Vital Signs Date Time Temp Pulse Resp B/P (MAP) Pulse Ox O2 Delivery O2 Flow Rate FiO2 02/14/25 12:38 99.2 02/14/25 12:30 106 117/76 (90) 95 02/14/25 12:30 14 Room Air* 0 21 General Appearance: Alert, Oriented X3 Lungs: Clear to auscultation Cardiovascular: Regular rate, Normal S1, Normal S2 Medications Current Medications Medications Dose Ordered Sig/Milagros Route Start Time Stop Time Status Last Admin Dose Admin Ceftriaxone Sodium 50 ml @ 100 mls/hr DAILY@09 IV 02/14/25 09:00 02/14/25 09:16 100 MLS/HR Ibuprofen 600 mg Q6HP PRN PO 02/13/25 21:15 02/14/25 12:38 600 MG Sodium Chloride 10 ml Q8HR IV 02/13/25 22:00 02/14/25 14:33 10 ML Acetaminophen/ Hydrocodone Bitart 1 tab Q4HP PRN PO 02/13/25 21:15 Ondansetron HCl 4 mg Q4HP PRN IV 02/13/25 21:15 Docusate Sodium 100 mg BIDPRN PRN PO 02/13/25 21:15 Nitroglycerin 0.4 mg Q5MINP PRN SL 02/13/25 23:00 Morphine Sulfate 2 mg Q30M PRN IV 02/13/25 23:00 Laboratory Results Laboratory Tests 02/14/25 06:05 Chemistry Test 02/14/25 06:05 Albumin 3.7 g/dL (3.2-4.8) Calcium Level 8.4 mg/dL (8.7-10.4) L Total Protein 6.8 g/dL (5.7-8.2) LFT Test 02/14/25 06:05 Alanine Aminotransferase (ALT) 516 U/L (7-40) H Alkaline Phosphatase 376 U/L (46-116) H Aspartate Amino Transferase (AST) 536 U/L (13-40) H Total Bilirubin 0.2 mg/dL (0.2-1.0) Urinalysis Test 02/13/25 17:35 Urine Color Light-yellow (Yellow) Urine Clarity Turbid (Clear) H Urine pH 8.0 (5.0-9.0) Urine Specific [place] 1.007 (1.001-1.035) Urine Protein Negative (Negative) Urine Ketones Negative (Negative) Urine Blood 2+ /uL (Negative) H Urine Nitrite Negative (Negative) Urine Bilirubin Negative (Negative) Urine Urobilinogen Normal mg/dL (Negative) Urine Leukocyte Esterase 3+ /uL (Negative) Urine RBC 3 /hpf (0 - 4) Urine Microscopic WBC 65 /HPF (0-5) H Urine Squamous Epithelial Cells Few /hpf (<5) Urine Bacteria Few /hpf (None Seen) H Urine Glucose Normal mg/dL (Normal) Microbiology Microbiology Date/Time Source Procedure Growth Status 02/13/25 20:13 Voided Urine Urine Culture - Preliminary Resulted Assessment/Plan Assessment/Plan Elevated liver enzymes Mesenteric adenitis Acute abdominal pain UTI (urinary tract infection) Pending GI consult Continue IV abx will order hepatic panel Plan discussed with: Patient Date of Service: Feb 14, 2025 Billing Provider: CLAIRE MILLARD MD Common Visit Codes: [id number] INP/OBS CARE(HIGH) CLAIRE MILLARD MD Feb 14, 2025 17:53
[2025-02-14 18:00] VITALS: BP 101/68; PULSE 80; RESP 14; TEMP 98.8; O2SAT 96
[2025-02-14 20:15] VITALS: BP 102/72; PULSE 102; RESP 19; TEMP 98; O2SAT 96
[2025-02-15 01:00] VITALS: BP 110/70; PULSE 80; RESP 20; TEMP 98.6; O2SAT 96
[2025-02-15 05:00] VITALS: BP 108/66; PULSE 89; RESP 20; TEMP 98.8; O2SAT 96
[2025-02-15 07:29] LABS: Albumin 3.7 g/dL (3.2-4.8); Anion Gap 12 (5-15); BUN/Creatinine Ratio 13.1 (10.0-20.0); Calcium 9.3 mg/dL (8.7-10.4); Carbon Dioxide 24 mmol/L (20-31); Chloride 106 mmol/L (98-107); Glucose 77 mg/dL (74-106); Sodium 142 mmol/L (136-145); Total Protein 6.7 g/dL (5.7-8.2)
[2025-02-15 07:30] LABS: Alanine Aminotransferase 308 U/L (7-40); Alkaline Phosphatase 311 U/L (46-116); Aspartate Aminotransferase 129 U/L (13-40); Bilirubin, Total 0.2 mg/dL (0.2-1.0); Blood Urea Nitrogen 8 mg/dL (9-23)
[2025-02-15 08:00] VITALS: PULSE 93; RESP 16
[2025-02-15 09:00] VITALS: BP 100/69; PULSE 85; RESP 16; TEMP 98.5; O2SAT 96
[2025-02-15 13:00] VITALS: BP 148/79; PULSE 94; RESP 16; TEMP 98; O2SAT 95
[2025-02-17 10:35] LABS: Hepatitis A Ab IgM Negative; Hepatitis B Core IgM Negative (Negative); Hepatitis B Surface Antigen Negative (Negative); Hepatitis C Antibody Negative (Negative)
--- NOTE | 2025-02-24 05:29 | DVHDS2 ---
Discharge Summary Date of Admission Feb 13, 2025 at 23:00 Date of Discharge: Feb 15, 2025 Labs/Diagnostic Data: Laboratory Results Test 02/15/25 05:21 02/14/25 06:05 02/13/25 20:13 02/13/25 17:35 Sodium Level 142 mmol/L (136-145) Potassium Level 4.0 mmol/L (3.5-5.1) Chloride Level 106 mmol/L (98-107) Carbon Dioxide Level 24 mmol/L (20-31) Anion Gap 12 (5-15) Blood Urea Nitrogen 8 mg/dL (9-23) Creatinine 0.61 mg/dL (0.550-1.02) Glomerular Filtration Rate Calc 129 mL/min (>90) BUN/Creatinine Ratio 13.1 (10.0-20.0) Serum Glucose 77 mg/dL (74-106) Calcium Level 9.3 mg/dL (8.7-10.4) Total Bilirubin 0.2 mg/dL (0.2-1.0) Aspartate Amino Transferase (AST) 129 U/L (13-40) Alanine Aminotransferase (ALT) 308 U/L (7-40) Alkaline Phosphatase 311 U/L (46-116) Total Protein 6.7 g/dL (5.7-8.2) Albumin 3.7 g/dL (3.2-4.8) White Blood Count 4.6 10^3/uL (4.4-10.8) Red Blood Count 4.40 10^6/uL (4.0-5.20) Hemoglobin 12.6 g/dL (12.2-16.2) Hematocrit 37.4 % (36.0-46.0) Mean Corpuscular Volume 85.0 fL (80.0-100.0) Mean Corpuscular Hemoglobin 28.6 pg (28.0-32.0) Mean Corpuscular Hemoglobin Concent 33.6 g/dL (32.0-36.0) Red Cell Distribution Width 15.7 % (11.8-14.3) Platelet Count 333 10^3/uL (140-450) Mean Platelet Volume 7.3 fL (6.9-10.8) Neutrophils (%) (Auto) 66.0 % (37.0-80.0) Lymphocytes (%) (Auto) 19.9 % (10.0-50.0) Monocytes (%) (Auto) 8.9 % (0.0-12.0) Eosinophils (%) (Auto) 4.4 % (0.0-7.0) Basophils (%) (Auto) 0.8 % (0.0-2.0) Neutrophils # (Auto) 3.0 10 ^3/uL (1.6-8.6) Lymphocytes # (Auto) 0.9 10 ^3/uL (0.4-5.4) Monocytes # (Auto) 0.4 10 ^3/uL (0-1.3) Eosinophils # (Auto) 0.2 10 ^3/uL (0-0.8) Basophils # (Auto) 0 10 ^3/uL (0-0.2) Nucleated Red Blood Cells 0.0 % Hepatitis A IgM Antibody Negative Hepatitis B Surface Antigen Negative (Negative) Hepatitis B Core IgM Antibody Negative (Negative) Hepatitis C Antibody Negative (Negative) Urine Opiates Screen Neg (NEGATIVE) Urine Fentanyl Screen Neg (NEGATIVE) Urine Barbiturates Screen Neg (NEGATIVE) Urine Phencyclidine Screen Neg (NEGATIVE) Urine Amphetamines Screen Neg (NEGATIVE) Urine Benzodiazepines Screen Neg (NEGATIVE) Urine Cocaine Screen Neg (NEGATIVE) Urine Cannabinoids Screen Neg (NEGATIVE) Urine Color Light-yellow (Yellow) Urine Clarity Turbid (Clear) Urine pH 8.0 (5.0-9.0) Urine Specific [place] 1.007 (1.001-1.035) Urine Protein Negative (Negative) Urine Ketones Negative (Negative) Urine Blood 2+ /uL (Negative) Urine Nitrite Negative (Negative) Urine Bilirubin Negative (Negative) Urine Urobilinogen Normal mg/dL (Negative) Urine Leukocyte Esterase 3+ /uL (Negative) Urine RBC 3 /hpf (0 - 4) Urine Microscopic WBC 65 /HPF (0-5) Urine Squamous Epithelial Cells Few /hpf (<5) Urine Bacteria Few /hpf (None Seen) Urine Glucose Normal mg/dL (Normal) Test 02/13/25 17:05 Erythrocyte Sedimentation Rate 82 mm/hr (0-20) Lactic Acid Level 1.0 mmol/L (0.4-2.0) C-Reactive Protein High Sensitivity 0.77 mg/dL (<1.0) B-Type Natriuretic Peptide 5.48 pg/mL (0-100) Lipase 55 U/L (12-53) Other Laboratory Tests 02/15/25 05:21 02/14/25 06:05 Brief Hx & Hospital Course: The patient is a a 24-year-old female with past medical history of gallstones who presented to [facility] ED with complaint of acute abdominal pain. Patient reports she has been experiencing diffuse abdominal pain with associated nausea and vomiting for the past 11 days. Patient was seen and evaluated in the ED, laboratory data shows WBC 4.2, hemoglobin 11.9, hematocrit 35.5, platelets 325, sodium 144, potassium 3.9, BUN 8, creatinine 0.63, glucose 79, lipase 55, AST 536, ALT 306, alkaline phos 321, BNP 5.48, blood pressure 107/59, heart rate 82, temperature 98.3 F, O2 saturation 99% room air. Single organ ultrasound revealing hepatic steatosis hepatomegaly. Abdomen/pelvis CT revealing mildly prominent right lower quadrant mesenteric nodes correlate for mesenteric adenitis. Urinalysis positive for urinary tract infection. Patient was started on IV antibiotic regimen Rocephin, please see medication orders section in the computer. On my assessment, patient denied chest pain, no headache, no dizziness, no shortness of breaths, no nausea or vomiting at this moment, no fever, no chills. Patient was admitted for further evaluation and medical management. Elevated transaminits from hepatic steatosis, improved on IV abx for mesenteric adenitis Condition at Discharge: Good Final Diagnosis/Problems List FATTY LIVER Mesenteric adenitis UTI Discharge Disposition: Home Discharge Instruct/Medications Diet: Regular Activity: No Restrictions, As Tolerated Follow Up/Referral: PCP in 7 days Medications: same home medications Discharge Statement: "Patient was advised to return to the ER or call 911 if any headaches, dizziness, shortness of breath, chest pain, abdominal pain, bleeding, fevers, or worsening of medical condition. Patient was counseled about treatment plan, medications, possible side effects, patientverbalized understanding. All questions were answered to the best of my ability. This discharge took greater then 30 minutes in planning, reviewing documentation, counseling the patient, and discussing with other team members." ASSESSMENT ASSESSMENT Assessment FATTY LIVER UTI Date of Service: Feb 15, 2025 Billing Provider: CLAIRE MILLARD MD Common Visit Codes: [id number] DISCH DAY >30min CLAIRE MILLARD MD Feb 24, 2025 05:29
== END 2025-02-15 15:00 | disposition home or self-care (01) | DRG 254 ==
LOC: EDBD 16:47 → ER 16:49 → OVERFLOW 23:00 → TELE-EAST 02-14 22:33
PROVIDERS: ADMIT Hospitalist; ATTEND Hospitalist
DX: I88.0 Nonspecific mesenteric lymphadenitis (principal); K76.0 Fatty (change of) liver, not elsewhere classified; R16.0 Hepatomegaly, not elsewhere classified; N39.0 Urinary tract infection, site not specified; R79.89 Other specified abnormal findings of blood chemistry
CPT/HCPCS: 36415; 74176; 76705; 80053; 80074; 80307; 81001; 83605; 83690; 83880; 85025; 85652; 86141; 87086; 96365; 96375; G0378; J2405